=== PATIENT | female | born 1990 ===

== ENCOUNTER 2020-07-04 01:09 | Inpatient (IN) | payer OTHER ==
[2020-07-04] MEDS ORDERED: DINOPROSTONE 10 MG VAGINAL SUPPOSITORY VG ONE (14:57)
--- NOTE | 2020-07-04 15:27 | HP ---
Past Medical History - Primary Care Physician PCP:: Dominik Garcia - Admission Chief Complaint: 29 yo LMP 10/19/2019, EDC 07/25/2020, EGA 37 weeks send for Induction of labor due to oligohydramnios History of Present Illness: 29 yo LMP 10/19/2019, EDC 07/25/2020, EGA 37 weeks send for Induction of labor due to oligohydramnios PMHX - healthy PSHX cholecystectomy FHX - DM [employer] HX - G1 - 24 weeks IUFD G2 2011 7 lbs G3 2013 8 lbs G4 present : 1.GDM on diet controlled 2. Oligohydramnios 3.EFW 2534 gm HC < 3 %, AC < 3 % History Source: Patient Limitations to Obtaining History: No Limitations - Past Medical History ...: 4 ...Para: 3 ...Term: 2 ...: 1 ...LMP: 10/19/19 ...EDC by Dates: 07/25/20 ...EDC by Sono: 07/25/20 - Past Surgical History Past Surgical History: Yes: Cholecystectomy Hx Myomectomy: No Hx Transabdominal Cerclage: No - Smoking History Smoking history: Never smoked Have you smoked in the past 12 months: No - Alcohol/Substance Use Hx Alcohol Use: No History of Substance Use: reports: None - Social History Usual Living Arrangement: Yes: With Spouse Do you think of yourself as: Straight/Heterosexual History of Recent Travel: No Home Medications - Allergies Allergies/Adverse Reactions: Allergies Allergy/AdvReac Type Severity Reaction Status Date / Time No Known Allergies Allergy Verified 07/04/20 14:58 - Home Medications Home Medications: Ambulatory Orders Pnv No.95/Ferrous Fum/Folic AC [ Vitamin Tablet] 1 each PO DAILY 07/04/20 Family Medical History Other Family History: DM Review of Systems - Review of Systems Constitutional: reports: No Symptoms Eyes: reports: No Symptoms HENT: reports: No Symptoms Neck: reports: No Symptoms Cardiovascular: reports: No Symptoms Respiratory: reports: No Symptoms Gastrointestinal: reports: No Symptoms Genitourinary: reports: No Symptoms Breasts: reports: No Symptoms Reported Musculoskeletal: reports: No Symptoms Integumentary: reports: No Symptoms Neurological: reports: No Symptoms Endocrine: reports: No Symptoms Hematology/Lymphatic: reports: No Symptoms Psychiatric: reports: No Symptoms Physical Exam - Maternity Vital Signs: Vital Signs Temperature 98.8 F 07/04/20 14:00 Pulse Rate 65 07/04/20 15:00 Respiratory Rate 07/04/20 15:00 Blood Pressure 118/60 07/04/20 15:00 O2 Sat by Pulse Oximetry (%) Constitutional: Yes: Well Nourished, No Distress Eyes: Yes: WNL. No: Occular Prosthesis HENT: Yes: WNL Neck: Yes: WNL Cardiovascular: Yes: WNL Breast(s): Yes: WNL - Abdominal Exam/OB Fundal Height: 35 Number of Fetuses: Single Presentation: Vertex Contractions: No Regularity: Irritability Intensity: Unaware Monitor Mode: External Heart Rate Location: [facility] Category: I Accelerations: Uniform Decelerations: None - Vaginal Exam/OB Vaginal Bleeding: No Dilatation (cm): FT Effacement (%): 30 Amniotic Membrane Status: Intact Presentation: Vertex/Position Station: -2 - Physical Exam Musculoskeletal: Yes: WNL Extremities: Yes: WNL Edema: No ...Motor Strength: WNL Psychiatric: Yes: WNL Hemorrhage Risk Assessment - Risk Factors Medium Risk Factors: Yes: Greater than 4 previous births Risk Score: 1 Risk Level: Medium Risk Problem List - Problems (1) 37 weeks gestation of Code(s): Z3A.37 - 37 WEEKS GESTATION OF (2) Oligohydramnios antepartum Code(s): O41.00X0 - OLIGOHYDRAMNIOS, UNSP TRIMESTER, NOT APPLICABLE OR UNSP (3) Gestational diabetes mellitus (GDM) in childbirth, diet controlled Code(s): O24.420 - GESTATIONAL DIABETES MELLITUS IN CHILDBIRTH, DIET CONTROLLED (4) Multiparity Code(s): Z64.1 - PROBLEMS RELATED TO MULTIPARITY (5) SGA (small for gestational age), , affecting care of mother, antepartum Code(s): O36.5990 - MATERN CARE FOR OTH OR SUSP POOR FETL GRTH, UNSP TRI, UNSP Assessment/Plan Admit to LD Induction of labor Cervidil placed
[2020-07-04 15:45] VITALS: BMI 36.3
[2020-07-04] MEDS: ELECTROLYTE-148 SOLN 1,000 ML IV SCH (17:10)
[2020-07-04 18:06] LABS: BASO % 0.2 % (0-2.0); EOS % 0.5 % (0-4.5); HEMOGLOBIN 12.4 GM/dL (10.7-15.3); LYMPH % 18.4 % (8-40); MCH 25.9 pg (25.7-33.7); MCHC 32.7 g/dl (32.0-36.0); MEAN CELL VOLUME 79.4 fl (80-96); MEAN PLT VOLUME 8.5 fl (7.5-11.1); MONO % 5.9 % (3.8-10.2); PLATELET COUNT 240 K/MM3 (134-434); RBC 4.79 M/mm3 (3.60-5.2); RDW 15.8 % (11.6-15.6); WHITE BLOOD COUNT 7.4 K/mm3 (4.0-10.0)
[2020-07-04 18:16] LABS: INR 0.97 (0.83-1.09); PROTHROMBIN TIME (PATIENT) 11.5 SEC (9.7-13.0)
[2020-07-04 18:19] LABS: ACTIVATED PTT 29.7 SECONDS (25.2-36.5)
[2020-07-04 18:35] LABS: BLOOD UREA NITROGEN 7.3 mg/dL (7-18); CALCIUM 9.1 mg/dL (8.5-10.1); CREATININE 0.5 mg/dL (0.55-1.3); POTASSIUM 3.6 mmol/L (3.5-5.1)
[2020-07-05] MEDS: ELECTROLYTE-148 SOLN 1,000 ML IV SCH ×2 (02:00→20:22)
[2020-07-05] MEDS ORDERED: AMPICILLIN SODIUM 2 GM VIAL ONE (04:05)
--- NOTE | 2020-07-05 04:50 | PN ---
Progress Note (short form) - Note Progress Note: Pt c/o mild UC VSS, afebrile EFM baseline 150-160 bpm with occasional variable decel TOCO Irreg UC VE - 3 cm, 50%, -2 vtx, IM cervidil removed A/P hydration lateral position O2 therapy close observation Problem List - Problems (1) 37 weeks gestation of Code(s): Z3A.37 - 37 WEEKS GESTATION OF (2) Oligohydramnios antepartum Code(s): O41.00X0 - OLIGOHYDRAMNIOS, UNSP TRIMESTER, NOT APPLICABLE OR UNSP (3) Gestational diabetes mellitus (GDM) in childbirth, diet controlled Code(s): O24.420 - GESTATIONAL DIABETES MELLITUS IN CHILDBIRTH, DIET CONTROLLED (4) Multiparity Code(s): Z64.1 - PROBLEMS RELATED TO MULTIPARITY (5) SGA (small for gestational age), , affecting care of mother, antepartum Code(s): O36.5990 - MATERN CARE FOR OTH OR SUSP POOR FETL GRTH, UNSP TRI, UNSP
[2020-07-05] MEDS ORDERED: AMPICILLIN - 2 GM in SODIUM CHLORIDE 100 ML IVPB ONE ×2 (04:51→08:00)
--- NOTE | 2020-07-05 06:45 | PN ---
Progress Note (short form) - Note Progress Note: Pt c/o mild UC VSS, afebrile EFM baseline 150bpm, no decel,cat 1 TOCO Irreg UC A/P Pitocin augmentation Problem List - Problems (1) 37 weeks gestation of Code(s): Z3A.37 - 37 WEEKS GESTATION OF (2) Oligohydramnios antepartum Code(s): O41.00X0 - OLIGOHYDRAMNIOS, UNSP TRIMESTER, NOT APPLICABLE OR UNSP (3) Gestational diabetes mellitus (GDM) in childbirth, diet controlled Code(s): O24.420 - GESTATIONAL DIABETES MELLITUS IN CHILDBIRTH, DIET CONTROLLED (4) Multiparity Code(s): Z64.1 - PROBLEMS RELATED TO MULTIPARITY (5) SGA (small for gestational age), , affecting care of mother, antepartum Code(s): O36.5990 - MATERN CARE FOR OTH OR SUSP POOR FETL GRTH, UNSP TRI, UNSP
[2020-07-05] MEDS ORDERED: OXYTOCIN 30 UNITS in 0.9% NS 30 UNIT/500 ML INFUS.BAG IVPB SCH (08:00)
[2020-07-05] MEDS: AMPICILLIN - 1 GM in SODIUM CHLORIDE 100 ML IVPB SCH ×5 (08:05→20:22)
[2020-07-05] MEDS ORDERED: AMPICILLIN SODIUM 1 GM VIAL ONE ×2 (08:13→11:56)
[2020-07-05] MEDS ORDERED: OXYTOCIN 30 UNITS in 0.9% NS 30 UNIT/500 ML INFUS.BAG IVPB ONE (08:13)
--- NOTE | 2020-07-05 11:41 | PN ---
Progress Note (short form) - Note Progress Note: 29 year old P3 at 37w+ with oligohydramnios and GDM Undergoing IOL Pitocin Denies complaints VE /-2, AROM clear fluid Cat 1 tracing Irregular contractions Plan Continue with Pitocin Anticipate vaginal delivery
[2020-07-05] MEDS ORDERED: PROMETHAZINE HCL 25 MG/1 ML VIAL IVPUSH ONE (13:25)
[2020-07-05] MEDS ORDERED: BUTORPHANOL TARTRATE 1 MG/ML VIAL IVPB ONE (13:25)
[2020-07-05] MEDS ORDERED: BUTORPHANOL TARTRATE 2 MG/ML VIAL ONE (13:27)
--- NOTE | 2020-07-05 13:29 | PN ---
Progress Note (short form) - Note Progress Note: IOL 37w c/o more pain VE 4-5/70/-2 occ variables, mod maria teresa, accels contractions q 3-4 min Pain management IV, declines epidural Continue with Pitocin Anticipate vag delivery
[2020-07-05] MEDS ORDERED: LIDOCAINE HCL 1% PRESERVATIVE FREE - 30ML VIAL ONE (15:46)
[2020-07-05] MEDS ORDERED: OXYTOCIN 20 UNITS in 0.9% NS 20 UNIT/1,000 ML INFUS.BAG IV ONE (15:47)
[2020-07-05] MEDS ORDERED: BENZOCAINE 28 GM HEMORRHOIDAL OINTMENT TP PRN (16:13)
[2020-07-05] MEDS ORDERED: BISACODYL 10 MG SUPP.RECT RC PRN (16:13)
[2020-07-05] MEDS ORDERED: BENZOCAINE 20% 57 GM BOTTLE TP PRN (16:13)
[2020-07-05] MEDS ORDERED: WITCH HAZEL 50% (TUCKS) 40 PAD/JAR PAD TP PRN (16:13)
[2020-07-05] MEDS ORDERED: METHYLERGONOVINE MALEATE 0.2 MG/1 ML AMP IM PRN (16:13)
--- NOTE | 2020-07-05 16:13 | PN ---
Delivery - Delivery Vaginal Delivery: No Problems Type of Anesthesia: Local EBL (cc): 300 (labial laceration repaired) Delivery, Single - [place] Feeding Plan Initial Plan: Elected not to breastfeed exclusively throughout hospitalization Remarks - Remarks Remarks: very long cord
[2020-07-05] MEDS ORDERED: OXYTOCIN 20 UNITS in 0.9% NS 20 UNIT/1,000 ML INFUS.BAG IV SCH (16:15)
[2020-07-05] MEDS: ACETAMINOPHEN 325 MG TABLET (FP) PO PRN (16:45)
[2020-07-05] MEDS: IBUPROFEN 600 MG TABLET (FP) PO PRN (16:46)
[2020-07-06 09:29] LABS: BASO % 0.4 % (0-2.0); EOS % 1.6 % (0-4.5); HEMATOCRIT 35.9 % (32.4-45.2); HEMOGLOBIN 11.5 GM/dL (10.7-15.3); LYMPH % 18.1 % (8-40); MCH 25.5 pg (25.7-33.7); MCHC 31.9 g/dl (32.0-36.0); MEAN CELL VOLUME 79.8 fl (80-96); MEAN PLT VOLUME 8.3 fl (7.5-11.1); NEUT % 73.9 % (42.8-82.8); PLATELET COUNT 223 K/MM3 (134-434); RDW 16.2 % (11.6-15.6); WHITE BLOOD COUNT 10.1 K/mm3 (4.0-10.0)
--- NOTE | 2020-07-06 10:45 | PN ---
Progress Note (short form) - Note Progress Note: S/P pt has no complaints abdomen soft + Bs mod lochia breasts soft no calf tenderness pt ambulating well afebrile vitals stable HCT 35.9 plan d/c home tomorrow
[2020-07-06] MEDS: ACETAMINOPHEN 325 MG TABLET (FP) PO PRN (14:11)
[2020-07-06] MEDS ORDERED: SENNOSIDES/DOCUSATE COMBO (SENNA PLUS) TABLET (UD) PO PRN (22:00)
[2020-07-07] MEDS: ACETAMINOPHEN 325 MG TABLET (FP) PO PRN ×2 (00:25→10:16)
[2020-07-07] MEDS: IBUPROFEN 600 MG TABLET (FP) PO PRN ×2 (00:25→10:17)
[2020-07-07 10:01] VITALS: BP 113/66; PULSE 60; TEMP 98.2
--- NOTE | 2020-07-07 11:14 | DS ---
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 Signs: Vital Signs Temperature 98.2 F 07/07/20 09:59 Pulse Rate 60 07/07/20 09:59 Respiratory Rate 18 07/07/20 09:59 Blood Pressure 113/66 07/07/20 09:59 O2 Sat by Pulse Oximetry (%) 99 07/07/20 09:59 Labs: CBC, BMP 07/06/20 08:59 07/04/20 17:00 Delivery - Delivery Vaginal Delivery: No Problems Type of Anesthesia: Local EBL (cc): 300 Delivery, Single - Stages of Labor Date 1st Stage Initiatied: 07/05/20 Time 1st Stage Initiated: 11:25 Date 2nd Stage Initiated: 07/05/20 Time 2nd Stage Initiated: 15:20 Date of Delivery: 07/05/20 Time of Delivery: 15:59 Time Placenta Delivered: 16:05 - 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 without complaints vss - af abd: soft, nt,nd, fundus firm ve: min lochia, intact ext: no calf tenderness b/l a/p ppd 2 s/p pt. doing well d/c to home today Discharge Summary Problems reviewed: Yes Reason For Visit: LABOR ADMIT Current Active Problems 37 weeks gestation of (Acute) Gestational diabetes mellitus (GDM) in childbirth, diet controlled (Acute) Multiparity (Acute) Oligohydramnios antepartum (Acute) SGA (small for gestational age), , affecting care of mother, antepartum (Acute) Procedures: Principal: Hospital Course: admitted for iol and underwent uncomplicated PP course uneventful Condition: Good - Instructions Diet, Activity, Other Instructions: regular diet activity as tolerated, but avoid heavy lifting, strenuous activity and intercourse. pericare f/u w Dr. Fernandez for PP visit in 4-6 weeks Referrals: Meena Fernandez MD [Non Staff, Medical] - Disposition: HOME - Home Medications Comprehensive Discharge Medication List: Ambulatory Orders Pnv No.95/Ferrous Fum/Folic AC [ Vitamin Tablet] 1 each PO DAILY 07/04/20 Ibuprofen [Motrin -] 600 mg PO Q6H PRN #50 tablet 07/07/20 Witch Kae 50% (Tucks) [Tucks Pads -] 1 pad TP PRN PRN pad 07/07/20
== END 2020-07-07 14:00 | disposition home or self-care (01) | DRG 560 ==
LOC: JDEL 01:09 → JLDR 13:09 → J3N 07-05 17:30
PROVIDERS: ADMIT Obstetrics & Gynecology; ATTEND Obstetrics & Gynecology
PROC: 3E0P7VZ Introduction of Hormone into Female Reproductive, Via Natural or Artificial Opening (ICD-10-PCS; principal; 2020-07-04)
PROC: 0UQMXZZ Repair Vulva, External Approach (ICD-10-PCS; 2020-07-05)
PROC: 10E0XZZ Delivery of Products of Conception, External Approach (ICD-10-PCS; 2020-07-05)
DX: O41.03X0 Oligohydramnios, third trimester, not applicable or unspecified (principal); Z3A.37 37 weeks gestation of pregnancy; Z37.0 Single live birth; O24.420 Gestational diabetes mellitus in childbirth, diet controlled; O36.5990 Maternal care for other known or suspected poor fetal growth, unspecified trimester, not applicable or unspecified; Z90.49 Acquired absence of other specified parts of digestive tract; O70.0 First degree perineal laceration during delivery
CPT/HCPCS: 36415; 59025; 59409; 80048; 82962; 85025; 85610; 85730; 86780; 86850; 86900; 86901; 87389; U0003